=== PATIENT | male | born 1965 | race African-American/Black ===

== ENCOUNTER 2017-04-28 12:40 | Emergency (ER) | payer OTHER ==
--- NOTE | 2017-04-28 12:53 | Emergency Department Report ---
Chief Complaint: Nausea/Vomiting/Diarrhea Stated Complaint: N/V/D Time Seen by Provider: 04/28/17 12:50 - HPI History of Present Illness: PT c/o nausea and abd bloating since yesterday. pt states he was feeling better today and then he went to work and at a [employer] - [facility] Review of Systems: +fever +diarrhea - last episode yesterday + nausea - Exam Vital Signs: Vital Signs 04/28/17 12:44 Temperature 98 F Pulse Rate 117 H Respiratory 18 Rate Blood Pressure 134/92 O2 Sat by Pulse 100 Oximetry Physical Exam: abd soft and non tender MSE screening note: Focused history and physical exam performed. Due to findings the following was ordered: labs ED Disposition for MSE Condition: Stable
[2017-04-28 13:24] LABS: Hematocrit 43.2 % (35.5-45.6); Hemoglobin 14.2 gm/dl (11.8-15.2); Mean Corpuscular HGB Conc 33 % (32-34); Mean Corpuscular Hemoglobin 28 pg (28-32); Mean Corpuscular Volume 86 fl (84-94); Platelet Count 219 K/mm3 (140-440); Red Blood Count 5.03 M/mm3 (3.65-5.03); Red Cell Distribution Width 13.5 % (13.2-15.2)
[2017-04-28 13:34] LABS: White Blood Count 20.7 K/mm3 (4.5-11.0)
[2017-04-28 13:44] LABS: Alanine Aminotransferase 98 units/L (7-56); Albumin/Globulin Ratio 1.1 %; Alkaline Phosphatase 114 units/L (35-129); Anion Gap 19 mmol/L; BUN/Creatinine Ratio 31.11; Blood Urea Nitrogen 28 mg/dL (9-20); Carbon Dioxide 22 mmol/L (22-30); Chloride 100.5 mmol/L (98-107); Glucose 133 mg/dL (75-100); Lipase 33 units/L (13-60); Potassium 3.9 mmol/L (3.6-5.0); Sodium 138 mmol/L (137-145); Total Protein 7.6 g/dL (6.3-8.2)
[2017-04-28 14:16] LABS: Anisocytosis 1+; Basophils % (Manual) 0 % (0.0-1.8); Blastocytes % (Manual) 0 %; Diff Status Complete; Eosinophils % (Manual) 0 % (0.0-4.3)
[2017-04-28] MEDS ORDERED: NACL 0.9% 1000 ML 1,000 ML IV ONE ×2 (17:47→22:25)
[2017-04-28] MEDS: ZOFRAN IV ONE ×2 (18:42→20:58)
[2017-04-28] MEDS ORDERED: NACL ONE ×2 (18:53→22:11)
--- NOTE | 2017-04-28 21:00 | Cat Scan Report ---
FINAL REPORT PROCEDURE: CT ABDOMEN PELVIS W CON TECHNIQUE: Computerized axial tomography of the abdomen and pelvis was performed after the IV injection of iodinated nonionic contrast. HISTORY: leukocytosis n/v/d COMPARISON: No prior studies are available for comparison. FINDINGS: A partially visualized 4 millimeters subpleural nodule is noted in the right middle lobe. There is a left diaphragmatic hernia containing fat without any signs of obstruction. Liver, spleen, and adrenal glands are within normal limits. Bilateral kidneys demonstrate uniform enhancement without hydronephrosis. Aorta is of normal caliber. There is no free fluid or free air. Gallbladder is unremarkable. Small bowel loops are within normal limits. Appendix is normal. There is mild degree prostatomegaly. IMPRESSION: No acute intra-abdominal or pelvic pathology. A partially visualized 4 millimeters subpleural nodule is noted in the right middle lobe. CT chest may be recommended for further evaluation
--- NOTE | 2017-04-28 22:08 | Emergency Department Report ---
ED N/V/D HPI - General Chief complaint: Nausea/Vomiting/Diarrhea Stated complaint: N/V/D Time Seen by Provider: 04/28/17 12:50 Source: patient Mode of arrival: Ambulatory Limitations: No Limitations - History of Present Illness MD complaint: nausea, vomiting, diarrhea, abdominal pain -: Gradual Description of Vomiting: watery Description of Diarrhea: water, mucous Associated Abdominal Pain: Yes Location: diffuse Radiation: none Severity: mild Pain Scale: 3 Quality: cramping Consistency: constant Associated Symptoms: denies: myalgias, chest pain, cough, diaphoresis, fever/ chills, headaches, loss of appetite, malaise, nausea/vomiting, rash, dysuria, shortness of breath, syncope, weakness - Related Data Previous Rx's Medication Instructions Recorded Last Taken Type Ondansetron [Zofran Odt] 4 mg PO Q8HR #20 tab.rapdis 04/28/17 Unknown Rx Allergies Allergy/AdvReac Type Severity Reaction Status Date / Time No Known Allergies Allergy Unverified 04/28/17 12:49 ED Review of Systems ROS: Stated complaint: N/V/D Other details as noted in HPI Comment: All other systems reviewed and negative ED Past Medical Hx - Past Medical History Previous Medical History?: No Hx Hypertension: Yes - Surgical History Past Surgical History?: No - Social History Smoking Status: Never Smoker Substance Use Type: None - Medications Home Medications: Home Medications Medication Instructions Recorded Confirmed Last Taken Type Ondansetron [Zofran Odt] [facility]8HR [facility]17 Unknown Rx ED Physical Exam - General Limitations: No Limitations General appearance: alert, in no apparent distress - Head Head exam: Present: atraumatic, normocephalic - Eye Eye exam: Present: normal appearance - ENT ENT exam: Present: normal exam, normal orophraynx, mucous membranes moist - Neck Neck exam: Present: normal inspection - Respiratory Respiratory exam: Present: normal lung sounds bilaterally. Absent: respiratory distress - Cardiovascular Cardiovascular Exam: Present: regular rate, normal rhythm. Absent: systolic murmur, diastolic murmur, rubs, gallop - GI/Abdominal GI/Abdominal exam: Present: soft, normal bowel sounds - Rectal Rectal exam: Present: deferred - Extremities Exam Extremities exam: Present: normal inspection - Back Exam Back exam: Present: normal inspection - Neurological Exam Neurological exam: Present: alert, oriented X3 - Psychiatric Psychiatric exam: Present: normal affect, normal mood - Skin Skin exam: Present: warm, dry, intact, normal color. Absent: rash ED Course Vital Signs 04/28/17 04/28/17 04/28/17 12:44 18:43 18:50 Temperature 98 F Pulse Rate 117 H 116 H Respiratory 18 16 Rate Blood Pressure 134/92 Blood Pressure [Right] O2 Sat by Pulse 100 94 99 Oximetry 04/28/17 04/28/17 04/28/17 19:09 19:10 19:22 Temperature 98.8 F Pulse Rate 121 H 119 H 113 H Respiratory 26 H 24 14 Rate Blood Pressure 129/75 129/75 Blood Pressure 129/75 [Right] O2 Sat by Pulse 98 98 95 Oximetry ED Medical Decision Making - Lab Data Result diagrams: 04/28/17 13:09 04/28/17 13:09 - EKG Data -: EKG Interpreted by Me - EKG Data When compared to previous EKG there are: no significant change Interpretation: no acute changes - Radiology Data Radiology results: report reviewed, image reviewed - Medical Decision Making patient doing well, tolerating po fluids her, labd an CT negative tolarting fluid here, will d cafter his HR is coming down and roberto lucy, Critical care attestation.: If time is entered above; I have spent that time in minutes in the direct care of this critically ill patient, excluding procedure time. ED Disposition Clinical Impression: Vomiting Disposition: DC-01 TO HOME OR SELFCARE Is pt being admited?: No Does the pt Need Aspirin: No Condition: Good Instructions: Acute Nausea and Vomiting (ED) Prescriptions: Ondansetron [Zofran Odt] 4 mg PO Q8HR #20 tab.rapdis Referrals: CARSON JOINER MD [Primary Care Provider] - 3-5 Days Time of Disposition: 22:12
[2017-04-28] MEDS ORDERED: NACL 0.9% 1000 ML 1,000 ML ONE (22:18)
[2017-04-28 23:47] VITALS: BP 130/82
== END 2017-04-28 23:50 | disposition home or self-care (01) ==
LOC: ED 12:40
DX: R11.2 Nausea with vomiting, unspecified (principal); R19.7 Diarrhea, unspecified; R10.84 Generalized abdominal pain; I10 Essential (primary) hypertension
CPT/HCPCS: 36415; 74177; 80053; 83690; 85007; 85025; 96360; 96361; 99284; J2405; J7030; Q9967